=== PATIENT | male | born 1980 | race Hispanic/Latino ===

== ENCOUNTER → 2017-11-22 | Outpatient (CLI) | payer OTHER ==
--- NOTE | 2017-11-22 15:41 | Diagnostic Imaging Report ---
PROCEDURE:X-RAY RIGHT HUMERUS, TWO OR MORE VIEWS COMPARISON:None. INDICATIONS:RIGHT ARM PAIN, HURT LIFTING WEIGHTS FINDINGS: There are no fractures, dislocations, lytic or blastic lesions. The bones are well-mineralized. The soft-tissues are unremarkable. CONCLUSION: No acute radiographic abnormality. Dictated by: Virgilio Martines M.D. on 11/22/2017 at 15:42 Electronically approved by: Virgilio Martines M.D. on 11/22/2017 at 15:42
--- NOTE | 2017-11-22 15:41 | Diagnostic Imaging Report ---
PROCEDURE:X-RAY RIGHT SHOULDER, COMPLETE COMPARISON:None. INDICATIONS:RIGHT SHOULDER/ARM PAIN FOR A FEW DAYS, TRAUMA LIFTING WEIGHTS FINDINGS: There are no fractures, dislocations, lytic or blastic lesions. The bones are well-mineralized. The soft-tissues are unremarkable. CONCLUSION: No acute radiographic abnormality. Dictated by: Virgilio Martines M.D. on 11/22/2017 at 15:42 Electronically approved by: Virgilio Martines M.D. on 11/22/2017 at 15:42
== END ==
LOC: RAD 14:26
PROVIDERS: ATTEND Internal Medicine
DX: M25.511 Pain in right shoulder (principal); M79.621 Pain in right upper arm; Y93.B3 Activity, free weights